=== PATIENT | male | born 2000 | race Two or more races ===

== ENCOUNTER 2022-01-26 21:38 | Emergency (ER) | payer SELFPAY ==
[2022-01-26 22:26] LABS: BASOPHIL 0.2 % (0-2); EOSINOPHIL 0.1 % (0-5); HCT 39.9 % (42.0-52.0); HGB 13.8 g/dl (13.2-18.0); LYMPHOCYTE 5.5 % (15-48); MCH 29.9 pg (25.0-31.0); MCHC 34.6 g/dL (32.0-36.0); MCV 86.6 fL (78.0-100.0); MONOCYTE 6.7 % (0-12); NRBC 0; PLT 304 K/uL (150-400); RBC 4.61 M/uL (4.70-6.00); RDW 12.8 % (11.5-14.0); WBC 16.5 K/uL (4.0-10.5)
[2022-01-26 22:34] LABS: INR 1.05 (0.9-1.2); PROTHROMBIN TIME 13.4 SECONDS (11.9-13.9); PTT 20.3 SECONDS (24.9-34.6)
[2022-01-26 22:35] LABS: D-DIMER 0.97 ug/mLFEU (0.00-0.41)
[2022-01-26 22:37] LABS: BILIRUBIN NEGATIVE (NEGATIVE); BLOOD NEGATIVE Ery/uL (NEGATIVE); CLARITY CLEAR (CLEAR); COLOR YELLOW (YELLOW); GLUCOSE (U) NORMAL (NORMAL); LEUKOCYTES NEGATIVE Leu/uL (NEGATIVE); NITRITE NEGATIVE (NEGATIVE); PROTEIN TRACE (LOW) mg/dL (NEGATIVE); SPECIFIC GRAVITY >=1.030 (1.001-1.030); UROBILINOGEN 0.2 mg/dL (0.2-1.0)
[2022-01-26 22:40] LABS: AMPHETAMINES NEGATIVE (NEGATIVE); BARBITURATES NEGATIVE (NEGATIVE); ECSTASY (MDMA) NEGATIVE (NEGATIVE); MARIJUANA (THC) NEGATIVE (NEGATIVE); METHADONE NEGATIVE (NEGATIVE); OPIATES NEGATIVE (NEGATIVE); OXYCODONE NEGATIVE (NEGATIVE)
[2022-01-26 22:46] LABS: BACTERIA TRACE; SQUAMOUS EPITHELIAL CELLS RARE
[2022-01-26 23:05] LABS: CORONAVIRUS 2019 SARS-COV-2 NEGATIVE (NEGATIVE); INFLUENZA A NAA NEGATIVE (NEGATIVE)
[2022-01-26 23:21] LABS: ACETAMINOPHEN (TYLENOL) < 2.0 ug/mL (10.0-30.0); ALBUMIN 4.5 g/dL (3.4-5.0); ALKALINE PHOSHATASE 82 U/L (46-116); ALT 38 U/L (16-63); AST 22 U/L (15-37); BILIRUBIN - TOTAL 1.4 mg/dL (0.2-1.0); BUN 21 mg/dL (7-18); CHLORIDE 102 mmol/L (98-107); CO2 (BICARBONATE) 27 mmol/L (21-32); CREATININE 1.05 mg/dL (0.67-1.17); GLOBULIN (CALCULATION) 3.4 g/dL; GLUCOSE 119 mg/dL (74-106); LIPASE 66 U/L (73-393); POTASSIUM 3.8 mmol/L (3.5-5.1); TOTAL PROTEIN 7.9 g/dL (6.4-8.2)
== END 2022-01-27 00:45 | disposition home or self-care (01) ==
LOC: FER 21:38
PROVIDERS: Internal Medicine
DX: R53.83 Other fatigue (principal); R11.2 Nausea with vomiting, unspecified; Z20.822 Contact with and (suspected) exposure to COVID-19
CPT/HCPCS: 36415; 80053; 80305; 81001; 82140; 82550; 83605; 83690; 84145; 84484; 85025; 85379; 85610; 85730; 93005; G0480; J1170; J1885; J2405; J3475; J7120; U0002